=== PATIENT | male | born 1985 | race Two or more races ===

== ENCOUNTER → 2024-09-22 | Outpatient (CLI) | payer OTHER, SELFPAY ==
[2024-09-22 09:38] LABS: Prothrombin Time 20.9 Seconds (9.0-12.2)
== END | disposition home or self-care (01) ==
PROVIDERS: PCP Internal Medicine; Referring Provider Internal Medicine; Visit Provider Internal Medicine
DX: I48.91 Unspecified atrial fibrillation (principal)
CPT/HCPCS: 36415; 85610; 85730

== ENCOUNTER → 2024-11-03 | Outpatient (CLI) | payer OTHER, SELFPAY ==
[2024-11-03 13:15] LABS: INR 1.2 (0.9-1.3); Partial Thromboplastin Time 27.9 Seconds (22.0-36.0); Prothrombin Time 12.5 Seconds (9.0-12.2)
== END | disposition home or self-care (01) ==
PROVIDERS: PCP Internal Medicine; Referring Provider Internal Medicine; Visit Provider Internal Medicine
DX: I48.91 Unspecified atrial fibrillation (principal)
CPT/HCPCS: 36415; 85610; 85730

== ENCOUNTER → 2025-01-03 | Outpatient (CLI) | payer OTHER, SELFPAY ==
[2025-01-03 12:40] LABS: INR 1.4 (0.9-1.3); Partial Thromboplastin Time 28.8 Seconds (22.0-36.0); Prothrombin Time 15.1 Seconds (9.0-12.2)
== END | disposition home or self-care (01) ==
LOC: SLAB 12:01
PROVIDERS: PCP Internal Medicine; Referring Provider Internal Medicine; Visit Provider Internal Medicine
DX: Z01.89 Encounter for other specified special examinations (principal)
CPT/HCPCS: 36415; 85610; 85730

== ENCOUNTER → 2025-01-16 | Outpatient (CLI) | payer OTHER, SELFPAY ==
--- NOTE | 2025-01-16 13:30 | ECHO_ITS ---
Transthoracic Echo Report Ht (in): 60 Wt (lb): 160 Exam Location: Echo Lab Status: Preadmit Band Tacker: HEIDY Santacruz^^^^ Indications: Procedure Performed: BP: / HR: MEASUREMENTS (Male / Female) Normal Values 2D ECHO LV Diastolic Diameter PLAX 4.7 cm 4.2 - 5.9 / 3.9 - 5.3 cm LV Systolic Diameter PLAX 3.2 cm IVS Diastolic Thickness 0.9 cm 0.6 - 1.0 / 0.6 - 0.9 cm LVPW Diastolic Thickness 1.1 cm 0.6 - 1.0 / 0.6 - 0.9 cm LV Relative Wall Thickness 0.4 LVOT Diameter 1.4 cm Aortic Root Diameter 3.7 cm LA Systolic Diameter LX 4.4 cm 3.0 - 4.0 / 2.7 - 3.8 cm LV Ejection Fraction MOD BP 62.0 % >= 55 % LV Ejection Fraction MOD 4C 59.1 % LV Ejection Fraction 4C AL 60.2 % LV Ejection Fraction MOD 2C 63.5 % LV Ejection Fraction 2C AL 65.3 % Ascending Aorta Diameter 3.2 cm DOPPLER AV Peak Velocity 238.0 cm/s AV Peak Gradient 22.7 mmHg AV Mean Gradient 14.2 mmHg AV Velocity Time Integral 52.9 cm AI Peak Velocity 198.0 cm/s AI Peak Gradient 15.7 mmHg AI Pressure Half Time 903.0 ms LVOT Peak Velocity 72.5 cm/s LVOT Peak Gradient 2.1 mmHg LVOT Velocity Time Integral 16.4 cm AV Area Cont Eq vti 0.5 cm? AV Area Cont Eq pk 0.5 cm? MV Area PHT 3.4 cm? Mitral E Point Velocity 82.5 cm/s Mitral A Point Velocity 81.1 cm/s Mitral E to A Ratio 1.0 LV E' Lateral Velocity 14.4 cm/s Mitral E to LV E' Lateral Ratio 5.7 LV E' Septal Velocity 10.4 cm/s Mitral E to LV E' Septal Ratio 7.9 TR Peak Velocity 427.5 cm/s TR Peak Gradient 73.1 mmHg PV Peak Velocity 131.0 cm/s PV Peak Gradient 6.9 mmHg RVOT Peak Velocity 69.5 cm/s FINDINGS Left Ventricle Normal left ventricular size, wall thickness, systolic function with no obvious regional wall motion abnormalities. There is grade I diastolic dysfunction of the left ventricle (impaired relaxation pattern). The left ventricular ejection fraction is normal, estimated at 55-60%. Right Ventricle The right ventricle is normal in size and systolic function. The estimated right ventricular systolic pressure is elevated , 75 mmHg. Left Atrium The left atrium is normal by two-dimensional, color flow and Doppler imaging with no structural abnormalities, no thrombus formation present. Right Atrium The right atrium is normal by two-dimensional imaging, color flow and Doppler imaging with no structural abnormalities, no thrombus formation present. Atrial Septum The interatrial septum appears normal with no evidence of a shunt. Aorta The aorta is normal by two-dimensional, color flow and Doppler interrogation. Mitral Valve Mild mitral regurgitation. Mild mitral annular calcification. Aortic Valve The aortic valve prosthesis is normal to two-dimensional, color flow and Doppler interrogation. Trace to mild aortic valve regurgitation. Tricuspid Valve There is moderate to severe tricuspid valve regurgitation. Pulmonic Valve The pulmonic valve is not well visualized. There is no significant pulmonic valve regurgitation. Vessels The pulmonary artery appears normal. The inferior vena cava pulmonary and hepatic veins appear normal. Pericardium The pericardium is normal by two-dimensional imaging. There is no significant pericardial effusion. CONCLUSIONS Indication: Aortic valve placement Normal LV function and size with an estimated EF of 55 and 60%. Stage I diastolic dysfunction. Normal LV size and function with elevated RVSP around 60-65 mmHg. At least moderate pulmonary hypertension. Normal functioning bioprosthetic aortic valve with mildly elevated V-max around 2.5 m/s and gradient of around 60 mmHg. RV appears normal with RVSP elevated 73 mmHg Mild TR. Mild MAC with mild MR. No pericardial effusion. Mild LA dilatation. Leonardo Moreno (Electronically Signed) Final Date: 16 January 2025 18:44
== END | disposition home or self-care (01) ==
PROVIDERS: PCP Internal Medicine; Referring Provider Internal Medicine; Visit Provider Internal Medicine
DX: I08.1 Rheumatic disorders of both mitral and tricuspid valves (principal); I50.30 Unspecified diastolic (congestive) heart failure
CPT/HCPCS: 93306

== ENCOUNTER → 2025-03-09 | Outpatient (CLI) | payer OTHER, SELFPAY ==
[2025-03-09 09:09] LABS: INR 1.8 (0.9-1.3)
== END | disposition home or self-care (01) ==
LOC: SLAB 07:45
PROVIDERS: PCP Internal Medicine; Referring Provider Internal Medicine; Visit Provider Internal Medicine
DX: I48.91 Unspecified atrial fibrillation (principal)
CPT/HCPCS: 36415; 85610; 85730

== ENCOUNTER → 2025-04-27 | Outpatient (CLI) | payer OTHER, SELFPAY ==
[2025-04-27 09:09] LABS: INR 2.7 (0.9-1.3); Partial Thromboplastin Time 36.3 Seconds (22.0-36.0); Prothrombin Time 27.1 Seconds (9.0-12.2)
== END | disposition home or self-care (01) ==
LOC: SLAB 08:12
PROVIDERS: PCP Internal Medicine; Referring Provider Internal Medicine; Visit Provider Internal Medicine
DX: I48.91 Unspecified atrial fibrillation (principal)
CPT/HCPCS: 36415; 85610; 85730

== ENCOUNTER → 2025-07-04 | Outpatient (CLI) | payer OTHER, SELFPAY ==
[2025-07-04 10:23] LABS: INR 3.2 (0.9-1.3); Partial Thromboplastin Time 41.7 Seconds (22.0-36.0)
[2025-07-04 10:43] LABS: Prothrombin Time 30.8 Seconds (9.0-12.2)
== END | disposition home or self-care (01) ==
LOC: SLAB 07:51
PROVIDERS: PCP Internal Medicine; Referring Provider Internal Medicine; Visit Provider Internal Medicine
DX: I48.91 Unspecified atrial fibrillation (principal)
CPT/HCPCS: 36415; 85610; 85730

== ENCOUNTER → 2025-09-04 | Outpatient (CLI) | payer OTHER, SELFPAY ==
[2025-09-04 09:16] LABS: INR 1.6 (0.9-1.3); Partial Thromboplastin Time 31.0 Seconds (22.0-36.0); Prothrombin Time 16.1 Seconds (9.0-12.2)
== END | disposition home or self-care (01) ==
LOC: SLAB 08:26
PROVIDERS: PCP Internal Medicine; Referring Provider Internal Medicine; Visit Provider Internal Medicine
DX: I48.91 Unspecified atrial fibrillation (principal)
CPT/HCPCS: 36415; 85610; 85730